=== PATIENT | male | born 1985 | race Caucasian/White ===

== ENCOUNTER 2018-11-12 07:40 | Emergency (ER) | payer OTHER ==
[~2018-11-12] VITALS: Ht 185.4 cm; Wt 81.6 kg
[2018-11-12] MEDS ORDERED: NKM (07:48)
[2018-11-12 07:50] VITALS: BP 129/85
[2018-11-12] MEDS ORDERED: Aspirin Baby 81mg ORAL ONE (08:00)
--- NOTE | 2018-11-12 08:00 | NUR ---
ED Nurse Note: Pt walked in to ED due to medial CP, non radiating and intermittent started yesterday. Noted ocassional coughing. AAO x4 and ambulatory with non labored breathing. Sinus bradycardia on cardiac exercise specialist 55-58.
--- NOTE | 2018-11-12 08:05 | Emergency Room Report ---
History of Present Illness General Chief Complaint: Chest Pain Source: Patient Present Illness HPI Disclaimer: Please note that this report is being documented using [employer] technology. This can lead to erroneous entry secondary to incorrect interpretation by the dictating instrument. HPI: Otherwise healthy 32-year-old male presents for evaluation of shortness of breath and chest pain. Symptoms began yesterday. He has had a productive cough with purulent mucus and increasing shortness of breath over the past 24 hours. He notes chest pain with coughing and pressure over the middle of his chest. This morning he woke up with shortness of breath stating he feel like he could not fully expand his lungs. He denies wheezing or history of asthma. No known sick contacts. Denies fever but notes nasal congestion and a sore throat. Denies abdominal pain, vomiting, diarrhea or rash. Has not taken any medication prior to arrival. PMH: Denies PSH: Denies Allergies: Denies Social Hx: Smoker, quit several months ago Allergies: Coded Allergies: No Known Allergies (Unverified , 11/12/18) Nursing Documentation-PMH Past Medical History: No Stated History Review of Systems All Other Systems: negative except mentioned in HPI Physical Exam Vital Signs Date Time Temp Pulse Resp B/P (MAP) Pulse Ox O2 Delivery O2 Flow Rate FiO2 11/12/18 07:43 97.0 61 18 129/85 (100) 100 Room Air General: Awake and alert, no acute distress HEENT: NC/AT. EOMI. anicteric sclera. No exudate or edema of the oropharynx. Neck: Supple, trachea midline Chest Wall: No tenderness, no deformity Cardiovascular: RRR. S1 and S2 normal. No murmur appreciated Resp: Normal work of breathing. Intermittent cough throughout the exam. No wheezing. No crackles appreciated Abdomen: Abdomen is soft, nondistended. Nontender Skin: Intact. No abrasions, laceration or rash over the exposed skin MSK: Normal tone and bulk. Moving all extremities. No obvious deformity. Neuro: Awake and alert. Mentating appropriately. Medical Decision Making ER Course 32-year-old male presents for evaluation of chest pain shortness of breath and cough of one days duration. Differential includes was not limited to upper respiratory infection, pharyngitis, bronchitis, pneumonia, ACS, GERD. Most likely, this is an upper respiratory illness, possibly bronchitis or even pneumonia. Will obtain x-ray, labs including EKG, cardiac enzymes to rule out cardiac causes. Laboratory Tests Test 11/12/18 08:00 White Blood Count 7.6 K/UL (4.8-10.8) Red Blood Count 5.57 M/UL (4.70-6.10) Hemoglobin 16.7 G/DL (14.2-18.0) Hematocrit 49.3 % (42.0-52.0) Mean Corpuscular Volume 89 FL (80-99) Mean Corpuscular Hemoglobin 30.0 PG (27.0-31.0) Mean Corpuscular Hemoglobin Concent 33.9 G/DL (32.0-36.0) Red Cell Distribution Width 11.7 % (11.6-14.8) Platelet Count 186 K/UL (150-450) Mean Platelet Volume 9.1 FL (6.5-10.1) Neutrophils (%) (Auto) 68.8 % (45.0-75.0) Lymphocytes (%) (Auto) 20.6 % (20.0-45.0) Monocytes (%) (Auto) 8.5 % (1.0-10.0) Eosinophils (%) (Auto) 1.1 % (0.0-3.0) Basophils (%) (Auto) 1.0 % (0.0-2.0) Sodium Level 141 MMOL/L (136-145) Potassium Level 3.8 MMOL/L (3.5-5.1) Chloride Level 104 MMOL/L (98-107) Carbon Dioxide Level 33 MMOL/L (21-32) H Anion Gap 4 mmol/L (5-15) L Blood Urea Nitrogen 13 mg/dL (7-18) Creatinine 1.0 MG/DL (0.55-1.30) Estimate Glomerular Filtration Rate > 60 mL/min (>60) Glucose Level 94 MG/DL (74-106) Calcium Level 8.7 MG/DL (8.5-10.1) Total Bilirubin 0.5 MG/DL (0.2-1.0) Aspartate Amino Transferase (AST) 33 U/L (15-37) Alanine Aminotransferase (ALT) 40 U/L (12-78) Alkaline Phosphatase 93 U/L (46-116) Total Creatine Kinase 82 U/L (26-308) Creatine Kinase MB 0.7 NG/ML (0.0-3.6) Creatine Kinase MB Relative Index 0.8 Troponin I 0.000 ng/mL (0.000-0.056) Total Protein 7.1 G/DL (6.4-8.2) Albumin 3.8 G/DL (3.4-5.0) Globulin 3.3 g/dL Albumin/Globulin Ratio 1.2 (1.0-2.7) EKG Diagnostic Results EKG Time: 07:57 Rate: bradycardiac Rhythm: NSR ST Segments: no acute changes Other Impression Sinus bradycardia, normal intervals, normal axis, no acute ST segment changes Rhythm Strip Diag. Results Rhythm Strip Time: 07:57 EP Interpretation: yes Rate: 50s Rhythm: NSR, no PVC's, no ectopy Chest X-Ray Diagnostic Results Chest X-Ray Diagnostic Results : Chest X-Ray Ordered: Yes # of Views/Limited/Complete: 2 View Indication: Shortness of Breath Interpretation: no consolidation, no effusion, no pneumothorax, no acute cardiopulmonary disease Impression: No acute disease Electronically Signed by: Electronically signed by Dr. Hawk Diaz Reevaluation Time: 09:25 Last Vital Signs Date Time Temp Pulse Resp B/P (MAP) Pulse Ox O2 Delivery O2 Flow Rate FiO2 11/12/18 07:50 58 20 Room Air 11/12/18 07:50 97.0 129/85 100 Status: improved Reevaluation Impression Patient reports improvement in his symptoms after receiving a DuoNeb treatment. Chest x-ray shows no obvious infiltrate, consolidation, effusion or other pathology. Cardiac enzymes are unremarkable and remainder of the lab work is reassuring. His EKG is nonischemic. The patient has never been hypoxic, no tachycardia or other concerning vital sign changes. Very little concern for PE or other major pathology at this time. Likely, this is an upper respiratory illness which should improve over the next few days. He noted significant improvement after the breathing treatment we will prescribe him a inhaler for short-term use. He can follow-up with 1 of the clinics listed in his discharge paperwork for reevaluation within 1 week. We discussed reasons to return to the emergency department. He understands and agrees with this treatment plan. Disposition: HOME, SELF-CARE Condition: Improved Scripts Albuterol Sulfate* (ALBUTEROL SULFATE MDI*) 8.5 Gm Hfa.aer.ad 2 PUFF INH Q4H PRN for cough/wheezing, #1 EA 0 Refills Prov: Hawk Diaz MD 11/12/18 Hawk Diaz MD Nov 12, 2018 08:05
[2018-11-12] MEDS ORDERED: Albuterol/Ipratropium 3ml neb HHN ONE (08:15)
[2018-11-12 08:21] LABS: EOSINOPHILS % (AUTO) 1.1 % (0.0-3.0); HEMATOCRIT 49.3 % (42.0-52.0); HEMOGLOBIN 16.7 G/DL (14.2-18.0); LYMPHOCYTES % (AUTO) 20.6 % (20.0-45.0); MEAN CORPUSCULAR VOLUME 89 FL (80-99); MONOCYTES % (AUTO) 8.5 % (1.0-10.0); NEUTROPHILS % (AUTO) 68.8 % (45.0-75.0); PLATELET COUNT 186 K/UL (150-450); RED BLOOD COUNT 5.57 M/UL (4.70-6.10); RED CELL DISTRIBUTION WIDTH 11.7 % (11.6-14.8); WHITE BLOOD COUNT 7.6 K/UL (4.8-10.8)
[2018-11-12 08:35] LABS: ANION GAP 4 mmol/L (5-15); BLOOD UREA NITROGEN 13 mg/dL (7-18); CALCIUM 8.7 MG/DL (8.5-10.1); CARBON DIOXIDE 33 MMOL/L (21-32); CHLORIDE 104 MMOL/L (98-107); POTASSIUM 3.8 MMOL/L (3.5-5.1); SODIUM 141 MMOL/L (136-145)
[2018-11-12 08:50] LABS: ALANINE AMINOTRANSFERASE 40 U/L (12-78); ALBUMIN 3.8 G/DL (3.4-5.0); ALBUMIN/GLOBULIN RATIO 1.2 (1.0-2.7); ALKALINE PHOSPHATASE 93 U/L (46-116); ASPARTATE AMINO TRANSFERASE 33 U/L (15-37); BILIRUBIN,TOTAL 0.5 MG/DL (0.2-1.0); CKMB 0.7 NG/ML (0.0-3.6); CREATINE KINASE 82 U/L (26-308)
--- NOTE | 2018-11-12 09:00 | NUR ---
ED Nurse Note: Pt states he felt better after breathing treatment. Sinus tach on equipment monitor phototypesetting.
[2018-11-12] MEDS ORDERED: ALBUTEROL SULF8.5 GM INH (09:25)
[2018-11-12 09:30] VITALS: BP 128/80
--- NOTE | 2018-11-12 09:30 | NUR ---
ER DISCHARGE NOTE: Patient is cleared to be discharged per ERMD, pt is aox4, on room air, with stable vital signs. pt was given dc and prescription instructions, pt was able to verbalize understanding, pt id band and iv site removed without complications. pt is able to ambulate with steady gait. pt took all belongings.
--- NOTE | 2018-11-12 11:26 | Diagnostic Imaging Report ---
Indication: Dyspnea Comparison: None 2 views of the chest obtained. Findings: Cardiomediastinal silhouette and pulmonary vascularity are within normal limits for age. The diaphragmatic contour is smooth and costophrenic angles are sharp. No pleural effusions are identified. There is a fracture of the left posterior seventh rib probably old. Correlate clinically. Impression: No acute cardiopulmonary disease. Fracture of the left posterior seventh rib, probably old. Correlate clinically.
--- NOTE | 2018-11-14 13:11 | Cardiology Report ---
APPROVED REPORT EKG Measurement Heart [id number] Sinus bradycardia Otherwise normal ECG
== END 2018-11-12 09:30 | disposition home or self-care (01) ==
LOC: EMR 08:10
DX: R07.9 Chest pain, unspecified (principal); R06.02 Shortness of breath
CPT/HCPCS: 36415; 71046; 80053; 82550; 82553; 84484; 85025; 93005; 94640; 94664; Z7502; 99284; J7620